=== PATIENT | male | born 1975 | race Caucasian/White ===

== ENCOUNTER → 2017-12-21 | Outpatient (CLI) | payer OTHER ==
[~2017-12-21] MED LIST: ASPIR 8181 MG PO; BYSTOLIC10 MG PO; FLECAINIDE ACE100 MG PO; NEXIUM40 MG PO; PRADAXA150 MG PO
--- NOTE | 2017-12-21 14:47 | Diagnostic Imaging Report ---
PROCEDURE: Frontal and lateral views of the chest. COMPARISON: Patients [facility], CT, CT ABDOMEN/PELVIS W, 02/10/2017, 16:14. INDICATIONS: COUGH FINDINGS: Lines/tubes: ILR projects over the thoracic spine.. Lungs: The lungs are well inflated. Mild right infrahilar opacity. There is no evidence of consolidation or pulmonary edema. Pleura: There is no pleural effusion or pneumothorax. Heart and mediastinum: Stable myocardium. IV. Bones: No acute bony abnormality. Midline sternotomy wires IMPRESSION: 1. right infrahilar opacity, which may represent atelectasis or developing pneumonia, in the appropriate clinical setting. Guevara Contreras M.D. Dictated by: Guevara Contreras M.D. on 12/21/2017 at 14:56 Electronically approved by: Guevara Contreras M.D. on 12/21/2017 at 14:56
== END ==
LOC: RAD 13:42
PROVIDERS: ATTEND Internal Medicine Interventional Cardiology
DX: R06.02 Shortness of breath (principal); R05 Cough
CPT/HCPCS: 71046